=== PATIENT | female | born 1940 | race Caucasian/White ===

== ENCOUNTER 2017-05-29 20:52 | Observation (INO) ==
[2017-05-30] MEDS ORDERED: Naloxone 0.4 MG/ML INJ IVP PRN (00:13)
--- NOTE | 2017-05-30 00:19 | Internal Med History&Physical ---
Date of Encounter: 05/30/17 Time of Encounter: 00:19 Assessment and Plan (1) Altered mental status Current visit: Yes Status: Acute Patient with multiple neurologic symptoms Head CT from [facility] unremarkable Hx of visual hallucinations and fever Obtain Brain MRI Start Acyclovir empirically for suspected viral encephalitis Blood cultures Check CRP, ESR, repeat labs here Consult IR for lumbar puncture with viral cultures a.m Obtain ECHO to r/o valvular abnormalities due to one month history of recurrent dizziness Neurology eval Monitor closely High risk condition due to alteration in mental status as well as suspected intracranial infection Qualifiers: Altered mental status type: unspecified Qualified Code(s): R41.82 - Altered mental status, unspecified (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 Per CT scan from [facility] center No intervention necessary for now (3) Hydronephrosis Current visit: Yes Status: Chronic PEr CT scan Urology consult [id number] team to call Possibly chronic from horseshoe kidney Qualifiers: Hydronephrosis type: with ureteropelvic junction obstruction Qualified Code (s): Q62.11 - Congenital occlusion of ureteropelvic junction (4) Hypertension Current visit: Yes Status: Chronic Unspecified Possibly renovascular Continue home meds Qualifiers: Hypertension type: unspecified Qualified Code(s): I10 - Essential (primary ) hypertension (5) CKD (chronic kidney disease) Current visit: Yes Status: Chronic Suspected, per history from family baseline unknown COntinue to monitor Qualifiers: Chronic kidney disease stage: unspecified stage Qualified Code(s): N18.9 - Chronic kidney disease, unspecified (6) DVT prophylaxis Current visit: Yes Status: Acute EPCDs till after lumbar puncture (7) Abdominal pain Current visit: Yes Status: Acute Work up unremarkable Tylenol prn Avoid sedatives due to AMS, obtain lipase Abdomen exam is unremarkable Qualifiers: Abdominal location: epigastric Qualified Code(s): R10.13 - Epigastric pain Internal Medicine - H&P: HPI Chief complaint: Confusion Admitted From: Hospital to Hospital Transfer Plans for Post Hospital Care: Home History of present illness: Ms. aWlker is a 76 year old female with PMH of HTN She is transferred from [facility] for complains of altered mental status, visual hallucinations and weakness Patient is seen and evaluated at bedside with her family They report she has been having dizziness for the past one month Yesterday, she went to her PCP , who found her to have hypokalemia and low blood pressure and started her on amoxicillin for a presumed UTI. She woke up this morning with complains of headaches, and weakness. Patient also complains of generalized malaise and nause, she also complains of RLQ pain and epigastric discomfort. Per her family, she is intermittently confused since onset of symptoms and had fevers at home, up to 100.4 F. They deny any viral prodrome, sick contacts, focal weakness, speech deficits, sensory deficits. Patient continued to hold her neck and head and complained of generalized headaches with neck pain and jaw pain, she denies neck stiffness. family reports two episodes of visual hallucination at referral hospital They deny illicit drug use No shortness of breath, no chest pain, but patient endorsed "flopping" of her chest Work up at [facility] ER: VSS Chem: Na 136, K, 3.7, Cl 96. Glu 126. LFT WNL. CBC WNL. UA: Unremarkable CT head: Cerebral atrophy Abd CT: Horseshoe kidney. L hydronephrosis, AAA 2.9X3cm. 6mm RLL nodule. Past Med Surg Social Fam HX - Past Medical History Medical history: hypertension Psychiatric history: no psych history - Past Surgical History Surgical History: cholecystectomy, knee replacement - Social History Smoking Status: Never smoker Smokeless Tobacco Status: No Alcohol use: none Drug use: none - Family History Father Hx Family Cardiac Disorders: Yes Mother Hx Family Cancer: Yes (breast) Hx Family Neurologic Disorders: Yes Internal Medicine - H&P: Meds 3 Allergy/AdvReac Type Severity Reaction Status Date / Time No Known Allergies Allergy Verified 05/30/17 00:22 All Systems PM: A 10-system review of systems was performed and is negative for pertinent findings except as documented above in the HPI. - Constitutional Constitutional: chills, fever(s), lethargy - Cardiovascular Cardiovascular ROS IM: no chest pain, no diaphoresis, no dyspnea, no lightheadedness, no palpitations, no syncope - Respiratory Respiratory: no cough, no dyspnea, no wheezing, no excessive phlegm production - Gastrointestinal Gastrointestinal: abdominal pain - Neurological Neurological ROS: as per HPI, confusion, headache(s), other (hallucinations) - Hematologic/Lymphatic Hematologic/Lymphatic: no easy bruising - Constitutional Vitals: Temp Pulse Resp BP Pulse Ox 97.9 F 58 18 153/80 97 05/29/17 23:19 05/29/17 23:19 05/29/17 23:19 05/29/17 23:19 05/29/17 23:19 General appearance: Present: mild distress, A&O X 3, pleasant, answers questions appropriately - Head Head exam: Present: atraumatic, normocephalic - Eye Eye exam: Present: PERRL, conjuntiva pink, sclera anicteric Pupils: Present: PERRL - Neck Neck exam general surgery: Present: supple, trachea midline. Absent: lymphadenopathy - Respiratory Respiratory exam: Present: CTAB. Absent: accessory muscle use, rales, rhonchi, wheezes - Cardiovascular Cardiovascular exam: Present: RRR, +S1, +S2. Absent: diastolic murmur, gallop, rubs, systolic murmur - GI/Abdominal GI/Abdominal exam: Present: normal bowel sounds, soft, no peritoneal signs. Absent: distended, tenderness - Extremities Exam Extremities exam: Present: warm, radial pulses palpable and symmetrical. Absent : calf tenderness, cyanotic, pedal edema - Neurological Exam Neurological exam: Present: alert, CN II-XII intact, oriented X3, no focal deficits. Absent: pronater drift, facial droop, speech deficit Additional comments: NO neck stiffness, no meningeal signs - Skin Skin exam: Present: dry, intact
[2017-05-30 00:53] LABS: Basophils % 0.4 %; Eosinophils % 0.6 %; Hematocrit 37.7 % (35.3-44.9); Hemoglobin 12.6 g/dL (11.5-15.4); Immature Granulocytes % 0.4 % (0-4); Lymphocytes # 1.5 K/mcL (0.6-4.6); Lymphocytes % 28.4 %; Mean Corpuscular HGB Conc 33.4 g/dL (31.6-35.5); Mean Corpuscular Hemoglobin 29.6 pg (28.0-33.3); Mean Corpuscular Volume 88.7 fL (83.0-100.0); Mean Platelet Volume 12.6 fL (9.4-12.4); Monocytes # 0.5 K/mcL (0.0-1.3); Monocytes % 9.8 %; Neutrophils # 3.1 K/mcL (1.6-8.9); Platelet Count 151 K/mcL (140-400); Red Blood Count 4.25 M/mcL (3.82-4.97); Red Cell Distribution Width 13.2 % (11.5-14.5); Segmented Neutrophils % 60.4 %
[2017-05-30 01:00] LABS: Chol/HDL Ratio 2.3 (0-4.9)
[2017-05-30] MEDS ORDERED: Acetaminophen 325 MG TABLET PO ONE (01:00)
[2017-05-30 01:01] LABS: BUN/Creatinine Ratio 22 (6-26); Blood Urea Nitrogen 18 mg/dL (7-20); Calcium 9.9 mg/dL (8.6-10.8); Carbon Dioxide 26 mEq/L (19-29); Chloride 101 mEq/L (98-109); Glucose 118 mg/dL (70-99); Lipase 20 Units/L (8-78); Osmolality,Calculated 287 (280-300); Potassium 3.3 mEq/L (3.5-4.5); Sodium 137 mEq/L (136-145); eGFR For African Americans > 60 (> 60); eGFR For Non-African Americans > 60 (> 60)
[2017-05-30] MEDS ORDERED: Acetaminophen 325 MG TABLET PO PRN (01:01)
[2017-05-30 01:16] LABS: Platelet Clumps Few (Not Present); Platelet Estimate Normal (Normal)
[2017-05-30] MEDS ORDERED: *HR* Enoxaparin 40 MG/0.4 ML SYRINGE SQ SCH (06:00)
[2017-05-30] MEDS ORDERED: Acyclovir 500 MG in D5% in Water 250 ML IVPB SCH (08:00)
--- NOTE | 2017-05-30 13:00 | Neurology - Consult Note ---
Date of Encounter: 05/30/17 Time of Encounter: 12:58 Assessment and Plan (1) Altered mental status Current Visit: Yes Status: Acute Characterized by dizziness on standing, confusion, can not get the right words out, on top of chronic daily headaches and neck pain. There is no leucocytosis, no nuchal rigidity, no kernig sign and no eye pain. Headaches are chronic in nature and they are not associated with mental status change at present time. Hallucination likely related to mild encephalopathy may be related to medical conditions. The dizziness has features of orthostatic nature. MRI of brain is negative for any acute intracranial abnormality. I agree with the medical team that the clinical picture not consistent with PAPER COUNTER viral infection and that she does not need CSF study, and that acyclovir can be discontinued. Please continue medical and supportive care. Qualifiers: Altered mental status type: unspecified Qualified Code(s): R41.82 - Altered mental status, unspecified History of Present Illness Chief complaint: headaches and hallucination HPI: Ms. Walker is a 76 year old female with PMH significant for who presented with acute onset of confusion, hallucination and weakness. neurology was consulted regarding headaches, neck pain, in the setting of confusion, transient fever and concern for encephalitis. Patient is interviewed in the presence of her daughter who provided most of her current illness. Patient does have chronic headache and neck pain for quite a while, on daily basis. She has not seen a neurologist for the headache and neck pain but she does agree that she has the headaches on daily basis. This time what made her come to the ER of outside hospital was that she woke up and developed dizziness when standing up and she was thought to have hypotension and mild UTI. Daughter mentions that the dizziness tend to occur in the morning after she took her medications including the antihypertensives. She had a similar episode about two months ago. Beside the dizziness she has reported visual hallucinations. There was also report of mild fever, lasting less than 24 hour. Night float team was concerned that she may have encephalitis and started her on Acyclovir empirically. MRI of brain completed and showed no acute intracranial abnormality. Certainly there is no pattern suggesting encephalitis. Clinically, patient agrees that she is feeling better. She still has headaches though. Mental status appears at her baseline. Past Med Surg Social Fam HX - Past Medical History Medical history: hypertension Psychiatric history: no psych history - Past Surgical History Surgical History: cholecystectomy, knee replacement - Social History Smoking Status: Never smoker Smokeless Tobacco Status: No Alcohol use: none Drug use: none - Family History Father Hx Family Cardiac Disorders: Yes Mother Hx Family Cancer: Yes (breast) Hx Family Neurologic Disorders: Yes Medications and Allergies Amoxicillin [Amoxil] 500 mg PO TID 05/30/17 [History] Buspirone HCl [Buspar] 5 mg PO BID 05/30/17 [History] Lisinopril/Hydrochlorothiazide [Zestoretic 20-25 mg Tablet] 1 tab PO DAILY 05/30 [History] Rosuvastatin Calcium [Crestor] 5 mg PO DAILY 05/30/17 [History] 3 Allergy/AdvReac Type Severity Reaction Status Date / Time No Known Allergies Allergy Verified 05/30/17 00:22 All Systems: A 10-system review of systems was performed and is negative for pertinent findings except as documented above in the HPI. Physical Examination - Vital Signs Vital Signs: Initial Vital Signs Pulse Ox 97 05/29/17 23:05 - Constitutional General appearance: comfortable - Neurologic Sensorimotor examination: other (Grossly intact) Detailed motor examination: grossly full strength in all extremities Motor examination - right side: 5/5: deltoids, biceps, triceps, wrist flexion, wrist extension, bench worker helper, hip flexors, tibialis Anterior, quadriceps, toe extension (EHL), plantarflexion Motor examination - left side: 5/5: deltoids, biceps, triceps, wrist flexion, wrist extension, hip flexors, bench worker helper, quadriceps, tibialis Anterior, toe extension (EHL), plantarflexion Detailed sensory examination: other (Grossly intact) Posture: other (None) Reflex and gait examination: other (Gait not assessed) Reflexes: Biceps: 2+, Triceps: 2+, Brachioradialis: 2+, Patella: 2+ Mental Status Examination: awake, alert, oriented to person, oriented to place, oriented to time, follows commands appropriately, answers questions appropriately, no agnosia, no aphasia, no aproxia Cranial nerve examination: PERRL, EOMI, visual javed intact, corneal reflexes brisk symmetrically, sensory to face intact, mastication intact, no facial asymmetry is present, no dysarthria, hearing is intact symmetrically, soft palate elevates bilaterally upon phonation, gag reflex intact, flexes SCM and trapezius muscles symmetrically with full power, tongue protrudes midline, no atrophy or facial fasiculations present Results - Laboratory Findings CBC and BMP: 05/30/17 00:38 05/30/17 00:38 Abnormal lab findings: Abnormal lab results MPV 12.6 fL (9.4-12.4) H 05/30/17 00:38 Clumped Platelets Few (Not Present) A 05/30/17 00:38 Immature Plt Fraction 11.0 % (1.1-6.1) H 05/30/17 00:38 Potassium 3.3 mEq/L (3.5-4.5) L 05/30/17 00:38 Glucose 118 mg/dL (70-99) H 05/30/17 00:38 HDL Cholesterol 81 mg/dL (40-59) H 05/30/17 00:38 Consult Discharge Plan - Plan Referrals: Wiliam Britt DO [Primary Care Provider] -
--- NOTE | 2017-05-30 18:35 | Event Note ---
Date of Encounter: 05/30/17 Time of Encounter: 11:20 I evaluated patient at bedside. She was brought to the hospital yesterday for confusion, delusions, low-grade temperature that she had 2 days prior to presentation. She has been afebrile throughout the night. On exam she is awake alert oriented 3. Neuro exam is nonfocal. Heart is regular with no murmurs. I reviewed the MRI of the brain. No acute pathology. Plan: Follow-up with neurology. At this point I think viral encephalitis has been ruled out as the patient is back to baseline and there has been no fever. No history of viral prodrome or no prior personal history of herpes virus infections. Patient reports dizziness which could be related to orthostatic hypotension. I will discontinue lisinopril which could cause orthostatic hypotension and dizziness and continue with HCTZ. Please hold lisinopril on discharge and continue with HCTZ only. Follow-up with PCP The medical records have been reviewed by a member of the utilization review team, EHR and by the physician advisor and it was found to not meet inpatient criteria. The status will be changed to observation under condition code 44.
[2017-05-31 06:16] LABS: Basophils % 0.6 %; Eosinophils # 0.1 K/mcL (0.0-0.6); Eosinophils % 1.3 %; Hematocrit 36.8 % (35.3-44.9); Hemoglobin 12.2 g/dL (11.5-15.4); Immature Granulocytes % 0.6 % (0-4); Immature Platelets 11.3 % (1.1-6.1); Lymphocytes # 1.8 K/mcL (0.6-4.6); Lymphocytes % 37.5 %; Mean Corpuscular HGB Conc 33.2 g/dL (31.6-35.5); Mean Corpuscular Hemoglobin 29.9 pg (28.0-33.3); Mean Corpuscular Volume 90.2 fL (83.0-100.0); Mean Platelet Volume 12.3 fL (9.4-12.4); Monocytes # 0.5 K/mcL (0.0-1.3); Monocytes % 9.4 %; Neutrophils # 2.4 K/mcL (1.6-8.9); Platelet Count 149 K/mcL (140-400); Red Blood Count 4.08 M/mcL (3.82-4.97); Red Cell Distribution Width 13.5 % (11.5-14.5); Segmented Neutrophils % 50.6 %
[2017-05-31 06:19] LABS: BUN/Creatinine Ratio 25 (6-26); Blood Urea Nitrogen 26 mg/dL (7-20); Calcium 9.4 mg/dL (8.6-10.8); Carbon Dioxide 27 mEq/L (19-29); Chloride 104 mEq/L (98-109); Glucose 105 mg/dL (70-99); Osmolality,Calculated 297 (280-300); Potassium 3.8 mEq/L (3.5-4.5); Sodium 141 mEq/L (136-145); eGFR For African Americans > 60 (> 60); eGFR For Non-African Americans 51 (> 60)
[2017-05-31] MEDS ORDERED: hydroCHLOROthiazide 25 MG TABLET PO SCH (09:00)
[2017-05-31 11:11] VITALS: BP 109/67
--- NOTE | 2017-05-31 13:44 | Discharge Summary ---
Date of Encounter: 05/31/17 Time of Encounter: 12:25 - Discharge Diagnosis (1) Altered mental status Priority: Primary Status: Resolved Qualifiers: Altered mental status type: unspecified Qualified Code(s): R41.82 - Altered mental status, unspecified (2) Horseshoe kidney Priority: Secondary Status: Chronic (3) Hydronephrosis Priority: Secondary Status: Chronic Qualifiers: Hydronephrosis type: with ureteropelvic junction obstruction Qualified Code (s): Q62.11 - Congenital occlusion of ureteropelvic junction (4) Hypertension Priority: Secondary Status: Chronic Qualifiers: Hypertension type: unspecified Qualified Code(s): I10 - Essential (primary ) hypertension (5) CKD (chronic kidney disease) Priority: Secondary Status: Chronic Qualifiers: Chronic kidney disease stage: unspecified stage Qualified Code(s): N18.9 - Chronic kidney disease, unspecified (6) DVT prophylaxis Priority: Secondary Status: Acute - Discharge Medications Prescriptions: hydroCHLOROthiazide [Hydrochlorothiazide] 25 mg PO DAILY #30 tablet Home Medications: Amoxicillin [Amoxil] 500 mg PO TID 05/30/17 [History] Buspirone HCl [Buspar] 5 mg PO BID 05/30/17 [History] Rosuvastatin Calcium [Crestor] 5 mg PO DAILY 05/30/17 [History] hydroCHLOROthiazide [Hydrochlorothiazide] 25 mg PO DAILY #30 tablet 05/31/17 [Rx ] Allergies/Adverse Reactions: 3 Allergy/AdvReac Type Severity Reaction Status Date / Time No Known Allergies Allergy Verified 05/30/17 00:22 Procedures/tests Complete & Pending: Procedures Performed prior 72 hours Category Date Time Status MR head/brain wo con [MR] Stat MRI 05/30/17 00:15 Completed EV echocardiogram Routine Y 05/30/17 00:46 Completed Date of admission: 05/29/17 22:37 Primary care physician: Wiliam Britt Consults: 05/30/17 01:01 Consult to Neurology [CONS] Routine Consulting Provider: [facility] Reason for Consult: Confusion, visual hallucinations Call Completed: No Discharging clinician: Maxine Gil Anticipated date of discharge: 05/31/17 - Patient Status Disposition: Home, Self-Care Condition: Good Functional capacity at discharge: independent ambulation Overall status at discharge: patient is back to baseline - Discharge Instructions Follow Up With: Wiliam Britt DO [Primary Care Provider] - Additional Instructions: Please follow up with your primary care physician within five days after your discharge from the hospital Your home medications have been changed as follows: 1. your home medication of Lisinopril/Hydrochlorothiazide combination pill has been discontinued 2. HCTZ 25mg once a day has been added to your home medications Please keep a daily log of your blood pressure readings and take this log with you to your PCP's appointment. Resume all other medications as prescribed by your primary care physician. - Diet and Activity Activity: resume usual activities as tolerated Diet: low salt diet Hospital course: Ms. Walker is a 76 year old female with PMH of HTN who was transferred from [facility] for management of AMS. Initially there was a concern for viral encephalitis for which she was empirically started on antivirals. She was seen by neurology and concern for orthostatic hypotension contributing to her symptoms. her home dose of lisinopril/hctz was placed on hold and hctz alone was continued. Her mental status returned to baseline with complete resolution of her presenting symptoms. 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 AT this time she is resting comfortably in bed and reports of living alone, ambulating well and denies any discomfort. She will be discharged to home with readjustment of her hypertensive medications. she states she has a lot of family around and is refusing home health services at this time. Patient is hemodynamically stable and will be discharged to home with follow up with PCP. - Time Spent with Patient Total time spent providing and/or coordinating discharge services: Less than 30 minutes - Constitutional Vitals: Temp Pulse Resp BP Pulse Ox 99.2 F 92 17 109/67 94 05/31/17 11:10 05/31/17 11:10 05/31/17 11:10 05/31/17 11:10 05/31/17 11:10 General appearance: Present: A&O X 3, pleasant, no acute distress, obese, answers questions appropriately - Head Head exam: Present: atraumatic, normocephalic - Eye Eye exam: Present: conjuntiva pink, sclera anicteric - Respiratory Respiratory exam: Present: CTAB. Absent: accessory muscle use, rales, rhonchi, wheezes - Cardiovascular Cardiovascular exam: Present: RRR, +S1, +S2. Absent: diastolic murmur, gallop, rubs, systolic murmur - GI/Abdominal GI/Abdominal exam: Present: normal bowel sounds, soft, no peritoneal signs. Absent: distended, tenderness - Extremities Exam Extremities exam: Present: warm, radial pulses palpable and symmetrical. Absent : calf tenderness, cyanotic, pedal edema - Neurological Exam Neurological exam: Present: alert, oriented X3 - Psychiatric Psychiatric exam: Present: normal affect, normal mood
== END 2017-05-31 15:29 | disposition home or self-care (01) ==
LOC: 3BNU → SUATTDRO 22:37
PROVIDERS: ADMIT Internal Medicine; ATTEND Internal Medicine

== ENCOUNTER 2017-06-05 22:32 | Observation (INO) ==
[2017-06-05] MEDS ORDERED: Aspirin 81 MG TAB.CHEW PO ONE (23:08)
[2017-06-05 23:28] LABS: Bilirubin,Urine Negative (Negative); Blood,Urine Negative (Negative); Clarity,Urine Clear (Clear); Color,Urine Yellow (Yellow); Glucose,Urine (UA) Normal (Normal); Ketones,Urine Negative (Negative); Leukocyte Esterase,Urine Negative (Negative); Nitrite,Urine Negative (Negative); PH,Urine 8.5 pH Units (5.0-8.0); Protein,Urine Trace mg/dL (Neg-Trace); Specific Gravity,Urine 1.021 (1.010-1.025); Urobilinogen,Urine Normal (Normal)
[2017-06-05 23:31] LABS: Hyaline Casts,Urine None Seen per lpf (None-Few); RBC,Urine 0-3 per hpf (0-3); Squamous Epithelial Cell,Urine Many per lpf (None-Few); WBC,Urine 0-3 per hpf (0-3)
[2017-06-05 23:41] LABS: Bacteria,Urine Few per hpf (None-Few)
[2017-06-06 00:17] LABS: Basophils % 0.2 %; Hemoglobin 12.9 g/dL (11.5-15.4); Immature Granulocytes % 0.2 % (0-4); Mean Corpuscular Hemoglobin 29.9 pg (28.0-33.3); Mean Platelet Volume 12.4 fL (9.4-12.4); Red Blood Count 4.31 M/mcL (3.82-4.97); Red Cell Distribution Width 12.9 % (11.5-14.5)
[2017-06-06 00:19] LABS: Hematocrit 38.1 % (35.3-44.9); Immature Platelets 12.1 % (1.1-6.1); Lymphocytes # 1.5 K/mcL (0.6-4.6); Lymphocytes % 30.1 %; Mean Corpuscular HGB Conc 33.9 g/dL (31.6-35.5); Mean Corpuscular Volume 88.4 fL (83.0-100.0); Monocytes # 0.5 K/mcL (0.0-1.3); Platelet Count 147 K/mcL (140-400); Segmented Neutrophils % 60.5 %
[2017-06-06 00:33] LABS: BUN/Creatinine Ratio 29 (6-26); Blood Urea Nitrogen 30 mg/dL (7-20); Calcium 10.1 mg/dL (8.6-10.8); Carbon Dioxide 29 mEq/L (19-29); Chloride 100 mEq/L (98-109); Glucose 129 mg/dL (70-99); Osmolality,Calculated 304 (280-300); Potassium 3.2 mEq/L (3.5-4.5); Sodium 143 mEq/L (136-145); eGFR For African Americans > 60 (> 60); eGFR For Non-African Americans 51 (> 60)
[2017-06-06 00:34] LABS: Albumin/Globulin Ratio 1.3 (1.1-2.2); Bilirubin,Direct 0.3 mg/dL (0.0-0.5); Bilirubin,Indirect 0.5 mg/dL (0.0-1.2); Bilirubin,Total 0.8 mg/dL (0.2-1.2); Globulin 3.2 g/dL (2.4-3.5); Total Protein 7.2 g/dL (6.0-8.3)
--- NOTE | 2017-06-06 00:36 | Emergency Department Note ---
Disposition Clinical Impression: Chest pain Qualifiers: Chest pain type: unspecified Qualified Code(s): R07.9 - Chest pain, unspecified Disposition: Admitted As Inpatient Condition: Good Referrals: Wiliam Britt DO [Primary Care Provider] - Time of Disposition: 06:10 General Adult HPI - General Chief complaint: ED Chest Pain Stated complaint: chest pain, nausea, AMS Time Seen by Provider: 06/05/17 23:05 Source: family Nursing Notes Reviewed: Yes Vital Signs Reviewed: Yes - History of Present Illness HPI Narrative: 76yo female presents with concern for chest pain. She is coming in by her daughter who assists with history. The daughter mentions patient was recently seen at [facility] in [place], for concerns of altered mental status, confusion. She was transferred to [facility] and admitted and was discharged last week. Daughter mentions that the chest pain had worsened which prompted her visit to the emergency department. Patient has complained of intermittent abdominal pain , vomiting, cough. Patient denies any headache, fever, weakness, shortness of breath. Pain Scale: 0 - Related Data Home Medications Medication Instructions Recorded Confirmed Buspirone HCl [Buspar] 5 mg PO BID 05/30/17 06/06/17 Rosuvastatin Calcium [Crestor] 5 mg PO DAILY 05/30/17 06/06/17 Previous Rx's Medication Instructions Recorded hydroCHLOROthiazide 25 mg PO DAILY #30 tablet 05/31/17 [Hydrochlorothiazide] Allergies Allergy/AdvReac Type Severity Reaction Status Date / Time No Known Allergies Allergy Verified 05/30/17 00:22 All systems ED: reviewed and negative except as stated. Constitutional: Denies: fever, chills Eyes: Denies: vision change ENT ED: Denies: throat pain Cardiovascular: Reports: as per HPI Respiratory: Reports: as per HPI Gastrointestinal: Reports: as per HPI Genitourinary: Denies: dysuria Musculoskeletal: Denies: back pain Integumentary: Denies: rash Neurological: Denies: headache Psychiatric: Denies: anxiety Endocrine: Denies: fatigue Hematological/Lymphatic: Denies: easy bleeding Allergic/Immunologic: Denies: facial swelling Past Medical History - Past Medical History Medical history: Reports: hypertension Surgical history: Reports: cholecystectomy, knee replacement Psychiatric history: Reports: no psych history - Social History Smoking Status: Never smoker Smokeless Tobacco Status: No Alcohol use: Reports: none Drug use: Reports: none Physical Exam - General Limitations: altered mental status General appearance: in no apparent distress - Head Head exam: atraumatic, normocephalic - Eye Eye exam: Present: EOMI. Absent: conjunctival injection - ENT ENT exam: mucous membranes moist - Neck Neck exam: Present: normal inspection, full ROM - Chest Chest inspection: Present: normal inspection. Absent: symmetric chest wall rise - Respiratory Respiratory exam: Present: normal lung sounds bilaterally. Absent: respiratory distress - Cardiovascular Cardiovascular exam: Present: regular rate, normal rhythm - Abdominal Exam Abdominal exam: Present: soft, Non-Tender - Extremities Exam Extremities exam: Present: normal inspection, full ROM, normal capillary refill - Back Exam Back exam: Present: full ROM - Neurological Exam Neurological exam: Present: alert, oriented X3 - Psychiatric Psychiatric exam: Present: normal affect, normal mood - Skin Skin exam: Present: warm, dry, intact, normal color, rash. Absent: cyanosis, diaphoresis Course Course Narrative: 76-year-old female presents with chest pain. She also has a history of mental status, nausea. Recently discharged from the [facility]. Daughter reports that worsening chest pain management tonight. Review of medical records show no cardiac workup other than a normal echocardiogram. Patient's chest pain is intermittent, and scapular pain with nausea. On examination patient appears in no acute distress. She does respond slowly, appears confused, but she is alert and oriented to person place and time. Work up Initiated. - Reevaluation(s) Reevaluation #1: Patient's EKG shows T-wave abnormalities, ST deviation. Sinus rhythm. No previous EKG for comparison. Troponin within normal limits. Chest x-ray unremarkable. Discussed with Dr. Maguire, who agreed for admission for chest pain workup. Time: 00:42 Reevaluation #2: Per Dr. Maguire, patient now complaining of right-sided jaw pain. We will repeat EKG. Patient also discussed with hospitalist Dr. Ulrich, who accepted patient and had recommended nitroglycerin and morphine for patient's pain. Time: 01:47 Vital Signs Temperature 98.3 F 06/05/17 22:33 Pulse Rate 71 06/05/17 22:33 Respiratory Rate 16 06/05/17 22:33 Blood Pressure 169/86 06/05/17 22:33 O2 Sat by Pulse Oximetry 99 06/05/17 22:33 Temperature 97.9 F 06/06/17 03:49 Pulse Rate 62 06/06/17 03:49 Respiratory Rate 17 06/06/17 03:49 Blood Pressure 137/75 06/06/17 03:49 O2 Sat by Pulse Oximetry 95 06/06/17 03:49 Oxygen Delivery Oxygen Delivery Room Air Medical Decision Making - Lab Data Lab results reviewed: Yes I reviewed the patient's lab results. Result diagrams: 06/06/17 00:11 06/06/17 04:08 Lab Results 06/05/17 06/06/17 06/06/17 Range/Units 23:20 00:11 00:11 WBC 5.0 (4.3-11.1) K/mcL RBC 4.31 (3.82-4.97) M/mcL Hgb 12.9 (11.5-15.4) g/dL Hct 38.1 (35.3-44.9) % MCV 88.4 (83.0-100.0) fL MCH 29.9 (28.0-33.3) pg MCHC 33.9 (31.6-35.5) g/dL RDW 12.9 (11.5-14.5) % Plt Count 147 (140-400) K/mcL MPV 12.4 (9.4-12.4) fL Immature Gran % 0.2 (0-4) % Seg Neutrophils % 60.5 % Lymphocytes % 30.1 % Monocytes % 9.0 % Eosinophils % 0.0 % Basophils % 0.2 % Neutrophils # 3.0 (1.6-8.9) K/mcL Lymphocytes # 1.5 (0.6-4.6) K/mcL Monocytes # 0.5 (0.0-1.3) K/mcL Eosinophils # 0.0 (0.0-0.6) K/mcL Basophils # 0.0 (0.0-0.2) K/mcL Immature Plt Fraction 12.1 H (1.1-6.1) % Sodium (136-145) mEq/L Potassium (3.5-4.5) mEq/L Chloride (98-109) mEq/L Carbon Dioxide (19-29) mEq/L BUN (7-20) mg/dL Creatinine (0.57-1.11) mg/dL Est GFR ( Amer) (> 60) Est GFR (Non-Af Amer) (> 60) BUN/Creatinine Ratio (6-26) Glucose (70-99) mg/dL Calculated Osmolality (280-300) Calcium (8.6-10.8) mg/dL Total Bilirubin 0.8 (0.2-1.2) mg/dL Direct Bilirubin 0.3 (0.0-0.5) mg/dL Indirect Bilirubin 0.5 (0.0-1.2) mg/dL AST 18 (5-34) Units/L ALT 14 (0-55) Units/L Alkaline Phosphatase 65 (38-126) Units/L Troponin I (0-0.03) ng/mL Serum Total Protein 7.2 (6.0-8.3) g/dL Albumin 4.0 (3.5-5.0) g/dL Globulin 3.2 (2.4-3.5) g/dL Albumin/Globulin Ratio 1.3 (1.1-2.2) Urine Color Yellow (Yellow) Urine Clarity Clear (Clear) Urine pH 8.5 H (5.0-8.0) pH Units Ur Specific Calhoun 1.021 (1.010-1.025) Urine Protein Trace (Neg-Trace) mg/dL Urine Glucose (UA) Normal (Normal) mg/dL Urine Ketones Negative (Negative) mg/dL Urine Blood Negative (Negative) Urine Nitrite Negative (Negative) Urine Bilirubin Negative (Negative) Urine Urobilinogen Normal (Normal) mg/dL Ur Leukocyte Esterase Negative (Negative) Urine Microscopic RBC 0-3 (0-3) per hpf Urine Microscopic WBC 0-3 (0-3) per hpf Ur Squamous Epith Cells Many H (None-Few) per lpf Urine Bacteria Few (None-Few) per hpf Hyaline Casts None Seen (None-Few) per lpf Ur Culture Indicated? NO (NO) Specimen Rejected 06/06/17 06/06/17 06/06/17 Range/Units 00:11 00:11 04:08 WBC (4.3-11.1) K/mcL RBC (3.82-4.97) M/mcL Hgb (11.5-15.4) g/dL Hct (35.3-44.9) % MCV (83.0-100.0) fL MCH (28.0-33.3) pg MCHC (31.6-35.5) g/dL RDW (11.5-14.5) % Plt Count (140-400) K/mcL MPV (9.4-12.4) fL Immature Gran % (0-4) % Seg Neutrophils % % Lymphocytes % % Monocytes % % Eosinophils % % Basophils % % Neutrophils # (1.6-8.9) K/mcL Lymphocytes # (0.6-4.6) K/mcL Monocytes # (0.0-1.3) K/mcL Eosinophils # (0.0-0.6) K/mcL Basophils # (0.0-0.2) K/mcL Immature Plt Fraction (1.1-6.1) % Sodium 143 (136-145) mEq/L Potassium 3.2 L (3.5-4.5) mEq/L Chloride 100 (98-109) mEq/L Carbon Dioxide 29 (19-29) mEq/L BUN 30 H (7-20) mg/dL Creatinine 1.05 (0.57-1.11) mg/dL Est GFR ( Amer) > 60 (> 60) Est GFR (Non-Af Amer) 51 L (> 60) BUN/Creatinine Ratio 29 H (6-26) Glucose 129 H (70-99) mg/dL Calculated Osmolality 304 H (280-300) Calcium 10.1 (8.6-10.8) mg/dL Total Bilirubin (0.2-1.2) mg/dL Direct Bilirubin (0.0-0.5) mg/dL Indirect Bilirubin (0.0-1.2) mg/dL AST (5-34) Units/L ALT (0-55) Units/L Alkaline Phosphatase (38-126) Units/L Troponin I 0.02 0.02 (0-0.03) ng/mL Serum Total Protein (6.0-8.3) g/dL Albumin (3.5-5.0) g/dL Globulin (2.4-3.5) g/dL Albumin/Globulin Ratio (1.1-2.2) Urine Color (Yellow) Urine Clarity (Clear) Urine pH (5.0-8.0) pH Units Ur Specific Calhoun (1.010-1.025) Urine Protein (Neg-Trace) mg/dL Urine Glucose (UA) (Normal) mg/dL Urine Ketones (Negative) mg/dL Urine Blood (Negative) Urine Nitrite (Negative) Urine Bilirubin (Negative) Urine Urobilinogen (Normal) mg/dL Ur Leukocyte Esterase (Negative) Urine Microscopic RBC (0-3) per hpf Urine Microscopic WBC (0-3) per hpf Ur Squamous Epith Cells (None-Few) per lpf Urine Bacteria (None-Few) per hpf Hyaline Casts (None-Few) per lpf Ur Culture Indicated? (NO) Specimen Rejected 06/06/17 06/06/17 Range/Units 04:08 04:08 WBC (4.3-11.1) K/mcL RBC (3.82-4.97) M/mcL Hgb (11.5-15.4) g/dL Hct (35.3-44.9) % MCV (83.0-100.0) fL MCH (28.0-33.3) pg MCHC (31.6-35.5) g/dL RDW (11.5-14.5) % Plt Count (140-400) K/mcL MPV (9.4-12.4) fL Immature Gran % (0-4) % Seg Neutrophils % % Lymphocytes % % Monocytes % % Eosinophils % % Basophils % % Neutrophils # (1.6-8.9) K/mcL Lymphocytes # (0.6-4.6) K/mcL Monocytes # (0.0-1.3) K/mcL Eosinophils # (0.0-0.6) K/mcL Basophils # (0.0-0.2) K/mcL Immature Plt Fraction (1.1-6.1) % Sodium 140 (136-145) mEq/L Potassium 3.0 L (3.5-4.5) mEq/L Chloride 100 (98-109) mEq/L Carbon Dioxide 29 (19-29) mEq/L BUN 29 H (7-20) mg/dL Creatinine 1.01 (0.57-1.11) mg/dL Est GFR ( Amer) > 60 (> 60) Est GFR (Non-Af Amer) 53 L (> 60) BUN/Creatinine Ratio 29 H (6-26) Glucose 117 H (70-99) mg/dL Calculated Osmolality 297 (280-300) Calcium 9.7 (8.6-10.8) mg/dL Total Bilirubin (0.2-1.2) mg/dL Direct Bilirubin (0.0-0.5) mg/dL Indirect Bilirubin (0.0-1.2) mg/dL AST (5-34) Units/L ALT (0-55) Units/L Alkaline Phosphatase (38-126) Units/L Troponin I (0-0.03) ng/mL Serum Total Protein (6.0-8.3) g/dL Albumin (3.5-5.0) g/dL Globulin (2.4-3.5) g/dL Albumin/Globulin Ratio (1.1-2.2) Urine Color (Yellow) Urine Clarity (Clear) Urine pH (5.0-8.0) pH Units Ur Specific Calhoun (1.010-1.025) Urine Protein (Neg-Trace) mg/dL Urine Glucose (UA) (Normal) mg/dL Urine Ketones (Negative) mg/dL Urine Blood (Negative) Urine Nitrite (Negative) Urine Bilirubin (Negative) Urine Urobilinogen (Normal) mg/dL Ur Leukocyte Esterase (Negative) Urine Microscopic RBC (0-3) per hpf Urine Microscopic WBC (0-3) per hpf Ur Squamous Epith Cells (None-Few) per lpf Urine Bacteria (None-Few) per hpf Hyaline Casts (None-Few) per lpf Ur Culture Indicated? (NO) Specimen Rejected Clotted - Radiology Data Radiology results reviewed: Yes I reviewed the patient's radiology results. - EKG Data EKG #1 EKG attestation: Yes I reviewed and interpreted this EKG. EKG shows normal: sinus rhythm Rate: normal Rhythm: NSR T wave inversions noted in: II, aVF When compared to previous EKG there are: previous EKG unavailable Attestation Statement - Attestation Attestation: I, Tono Maguire MD, personally evaluated this patient and discussed their management with the midlevel provicer, PAC/GREENHOUSE TECHNICIAN. I reviewed the midlevel provider 's note and agree with the documented findings, medical decision making, and plan of care. 76-year-old female who lives alone presents to the emergency department with her daughter complaining of some chest pain today. Daughter states she complains of chest pain off and on and states it feels like something is stuck in her chest. She coughs and sometimes produces some clear to white sputum. Daughter also reports that she has been confused and saying things that do not make sense. She is oriented and recognizes people but just intermittently says things like while here in the emergency department she asked her daughter to go over there and get her a menu. She also asked her daughter to push a button to call someone on the second floor. Patient does admit to chest pain in the mid chest. She denies radiation. She admits to some mild shortness of breath. While here in the emergency department she also had an episode of right jaw pain. On examination patient is a well-developed well-nourished elderly female in no acute distress. She is alert and answers questions appropriately but does seem elderly confused intermittently. There is no cyanosis or diaphoresis. She is very anxious. Chest is nontender to palpation. Breath sounds are clear and equal bilaterally. Heart regular. Abdomen soft and nontender. No pedal edema. Labs reviewed. Chest x-ray negative. EKG does show some diffuse T-wave flattening with no prior EKG for comparison. The hospitalist, Dr. Marino, was consulted and accepted the admission of the patient.
[2017-06-06] MEDS ORDERED: Nitroglycerin 0.4 MG TAB.SUBL SL ONE (01:45)
[2017-06-06] MEDS ORDERED: *HR* Morphine 2 MG/ML SYRINGE IVP ONE (01:46)
--- NOTE | 2017-06-06 03:31 | Internal Med History&Physical ---
<HumbertoRichard - Last Filed: 06/06/17 04:01> Date of Encounter: 06/06/17 Time of Encounter: 02:45 Assessment and Plan (1) Chest pain Current visit: Yes Status: Acute Atypical chest pain symptoms. Troponin was negative. Last echo on 05/30/17 shows an EF of 60-65% with mild diastolic dysfunction. CXR showed no acute cardiopulmonary disease. UMANG score 2. Currently not symptomatic. - Trend troponins x3 every 6HR. - Pharmacologic stress test. - Repeat EKG in morning. - Continue home med of ASA 81 and simvastatin. Qualifiers: Chest pain type: unspecified Qualified Code(s): R07.9 - Chest pain, unspecified (2) Altered mental status Current visit: No Status: Resolved According to patient's family, she is currently at her baseline in terms of her mental status. She is not hypotensive. Afebrile. No complaints of dysuria. Denies constipation. UA was negative for infection. Qualifiers: Altered mental status type: unspecified Qualified Code(s): R41.82 - Altered mental status, unspecified (3) Hypokalemia Current visit: Yes Status: Acute Potassium level at 3.2. 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 - Given potassium chloride in ED. - Recheck in morning. (4) CKD (chronic kidney disease) Current visit: No Status: Chronic Qualifiers: Chronic kidney disease stage: unspecified stage Qualified Code(s): N18.9 - Chronic kidney disease, unspecified (5) Hypertension Current visit: No Status: Chronic Started on home med. - HCTZ. Qualifiers: Hypertension type: unspecified Qualified Code(s): I10 - Essential (primary ) hypertension (6) Anxiety Current visit: Yes Status: Acute - Continue home med of buspar. (7) DVT prophylaxis Current visit: No Status: Acute - Heparin SQ. Internal Medicine - H&P: HPI Chief complaint: Chest pain, AMS Admitted From: Emergency Dept History of present illness: Ms. 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 Patient was alert and oriented x3 when seen, but she was unable to answer my questions appropriately. He son and daughter were at bedside and were able to help me with her history. Patient had started c/o chest pain around 5 pm yesterday, stating that it was achy in nature, was across her chest, did note radiate to arm, occurred at rest, and lasted for 2-3 hours. She takes ASA everday but did not take anything to relieve the pain. She was also c/o SOB at the time as well. No fever or chills. She was nauseous today, but no vomiting. She did have a bowel movement earlier yesterday. Denies any dysuria. Patient was seen last week here for AMS where she was hypotensive and had a fever at home per her family. Her PCP put her on amoxicillin on suspicion of UTI. During her stay here then, there was suspicion of viral encephalitis, but that was ruled out. Her hypotension was ruled likely due to her BP medications. Lisinopril was discontinued and she was discharged with HCTZ. As of right now she denies any chest pain, SOB, nausea, or vomiting. Past Med Surg Social Fam HX - Past Medical History Medical history: hypertension Psychiatric history: no psych history - Past Surgical History Surgical History: cholecystectomy, knee replacement - Social History Smoking Status: Never smoker Smokeless Tobacco Status: No Alcohol use: none Drug use: none - Family History Father Hx Family Cardiac Disorders: Yes Mother Hx Family Cancer: Yes (breast) Hx Family Neurologic Disorders: Yes Internal Medicine - H&P: Meds Buspirone HCl [Buspar] 5 mg PO BID 05/30/17 [History] Rosuvastatin Calcium [Crestor] 5 mg PO DAILY 05/30/17 [History] hydroCHLOROthiazide [Hydrochlorothiazide] 25 mg PO DAILY #30 tablet 05/31/17 [Rx ] 3 Allergy/AdvReac Type Severity Reaction Status Date / Time No Known Allergies Allergy Verified 05/30/17 00:22 ROS unobtainable: other (History obtained from patient and family. ) All Systems PM: A 10-system review of systems was performed and is negative for pertinent findings except as documented above in the HPI. - Constitutional Constitutional: as per HPI - Cardiovascular Cardiovascular ROS IM: chest pain, dyspnea - Respiratory Respiratory: dyspnea, chest congestion, no wheezing - Gastrointestinal Gastrointestinal: abdominal pain (Epigastric pain), nausea, no constipation, no diarrhea, no vomiting - Genitourinary Genitourinary: no dysuria - Musculoskeletal Musculoskeletal ROS IM: no numbness, no tingling - Neurological Neurological ROS: confusion (Per family. ), no dizziness, no numbness, no tingling - Psychiatric Psychiatric: anxiety - Constitutional Vitals: Temp Pulse Resp BP Pulse Ox 98.3 F 72 18 141/78 100 06/05/17 22:33 06/06/17 01:26 06/06/17 02:35 06/06/17 02:35 06/06/17 01:26 General appearance: Present: A&O X 3, no acute distress. Absent: answers questions appropriately - Respiratory Respiratory exam: Present: CTAB. Absent: rhonchi, wheezes - Cardiovascular Cardiovascular exam: Present: RRR, +S1, +S2 - GI/Abdominal GI/Abdominal exam: Present: normal bowel sounds, soft, tenderness (Mild tenderness in mid epigastric region. ). Absent: guarding, rebound - Extremities Exam Extremities exam: Present: full ROM, radial pulses palpable and symmetrical. Absent: tenderness - Neurological Exam Neurological exam: Present: CN II-XII intact, oriented X3, reflexes normal, no focal deficits, strengths equal and symetr throughout - Psychiatric Psychiatric exam: Absent: anxious Internal Med - H&P Results - Labs CBC & Chem 7: 06/06/17 00:11 06/06/17 00:11 - EKG Data -: EKG Interpreted by Myself EKG shows normal: sinus rhythm Rate: normal - EKG Data Prior EKG available for review: no Interpretation IM: ischemic changes (ST-depression and T-wave inversions suggestive of ischemic changes) <Ronaldo Marino - Last Filed: 06/06/17 05:05> Date of Encounter: 06/06/17 Internal Medicine - H&P: HPI History of present illness: Ms. Walker is a 76 year old female All Systems PM: A 10-system review of systems was performed and is negative for pertinent findings except as documented above in the HPI. - Constitutional Vitals: Temp Pulse Resp BP Pulse Ox 97.9 F 62 17 137/75 95 06/06/17 03:49 06/06/17 03:49 06/06/17 03:49 06/06/17 03:49 06/06/17 03:49 Internal Med - H&P Results - Labs CBC & Chem 7: 06/06/17 00:11 06/06/17 04:08 Labs: [facility] 06/06/17 04:08 Sodium 140 Potassium 3.0 L Chloride 100 Carbon Dioxide 29 BUN 29 H Creatinine 1.01 Glucose 117 H Calcium 9.7 Cardiac Enzymes 06/06/17 Range/Units 04:08 Troponin I 0.02 (0-0.03) ng/mL - Attending Attestation I conducted a face to face diagnostic evaluation of this patient and my medical decision-making was reviewed with the Resident Physician, Dr. Richard Paul. I agree with the documented findings, disposition and treatment plan as described except to the extent set forth below: Patient was brought to the hospital due to complaints of chest pain. Currently she denies chest pain. History is limited by patient's dementia. On exam she is in no acute distress. Heart is regular. Lungs are clear. Troponin is negative. EKG reviewed by myself shows normal normal rate. Normal rhythm. T-wave inversions in leads 2 and aVF. Plan: Trend troponin. Obtain stress test.
[2017-06-06 04:53] LABS: BUN/Creatinine Ratio 29 (6-26); Blood Urea Nitrogen 29 mg/dL (7-20); Calcium 9.7 mg/dL (8.6-10.8); Carbon Dioxide 29 mEq/L (19-29); Chloride 100 mEq/L (98-109); Glucose 117 mg/dL (70-99); Osmolality,Calculated 297 (280-300); Sodium 140 mEq/L (136-145); eGFR For African Americans > 60 (> 60); eGFR For Non-African Americans 53 (> 60)
[2017-06-06] MEDS ORDERED: Regadenoson 0.4 MG/5 ML SYRINGE IVP ONE (06:11)
[2017-06-06 06:35] LABS: Eosinophils % 0.4 %; Immature Granulocytes % 0.2 % (0-4)
[2017-06-06 06:36] LABS: Basophils % 0.4 %; Hematocrit 35.8 % (35.3-44.9); Immature Platelets 12.9 % (1.1-6.1); Lymphocytes # 1.5 K/mcL (0.6-4.6); Lymphocytes % 31.7 %; Mean Corpuscular HGB Conc 33.5 g/dL (31.6-35.5); Mean Corpuscular Hemoglobin 29.7 pg (28.0-33.3); Mean Corpuscular Volume 88.6 fL (83.0-100.0); Mean Platelet Volume 12.3 fL (9.4-12.4); Monocytes # 0.5 K/mcL (0.0-1.3); Monocytes % 10.6 %; Neutrophils # 2.7 K/mcL (1.6-8.9); Platelet Count 132 K/mcL (140-400); Red Blood Count 4.04 M/mcL (3.82-4.97); Segmented Neutrophils % 56.7 %
[2017-06-06 06:55] LABS: Platelet Clumps Few (Not Present); Platelet Estimate Slight Decrease (Normal)
[2017-06-06] MEDS: hydroCHLOROthiazide 25 MG TABLET PO SCH (09:53)
[2017-06-06] MEDS: *HR* Heparin 5,000 UNIT/ML VIAL SQ SCH ×2 (09:53→18:01)
--- NOTE | 2017-06-06 14:57 | Discharge Summary ---
Date of Encounter: 06/06/17 Time of Encounter: 14:55 - Discharge Diagnosis (1) Chest pain Priority: Primary Status: Acute Comments: That started day of presentation. Patient suspects secondary to anxiety. 05/30 TTE with EF 60% and mild diastolic dysfunction. CXR negative. Serial troponins negative, EKG without acute ST changes. Stress test negative for infarct or ischemia. Recommend outpatient follow-up with cardiology. Continue home ASA, and statin. Qualifiers: Chest pain type: unspecified Qualified Code(s): R07.9 - Chest pain, unspecified (2) Atrial fibrillation Priority: Primary Status: Acute Comments: brief episodes of atrial fibrillation noted during stress. No A. fib noted on telemetry or EKG. No previous history of A. fib. Continue home ASA. Follow- up with cardiology outpatient. Qualifiers: Atrial fibrillation type: paroxysmal Qualified Code(s): I48.0 - Paroxysmal atrial fibrillation (3) Hypokalemia Priority: Primary Status: Acute Comments: Potassium 3.0. Replaced. Monitor repeat potassium. Mg pending (4) Anxiety Priority: Primary Status: Acute Comments: per hx. patient reports being on BuSpar in the past but self discontinued as she did not tolerate it well. Strongly encourage outpatient follow-up with PCP (5) CKD (chronic kidney disease) Priority: Primary Status: Chronic Comments: per hx. Cr at baseline. Qualifiers: Chronic kidney disease stage: unspecified stage Qualified Code(s): N18.9 - Chronic kidney disease, unspecified - Discharge Medications Prescriptions: Aspirin 81 mg PO DAILY #30 tab.chew Home Medications: Rosuvastatin Calcium [Crestor] 5 mg PO DAILY 05/30/17 [History] hydroCHLOROthiazide [Hydrochlorothiazide] 25 mg PO DAILY #30 tablet 05/31/17 [Rx ] Aspirin 81 mg PO DAILY #30 tab.chew 06/06/17 [Rx] Lisinopril/Hydrochlorothiazide [Zestoretic 20-25 mg Tablet] 1 tab PO DAILY 06/06 [History] Allergies/Adverse Reactions: 3 Allergy/AdvReac Type Severity Reaction Status Date / Time No Known Allergies Allergy Verified 05/30/17 00:22 Procedures/tests Complete & Pending: Procedures Performed prior 72 hours Category Date Time Status NM crystal perf SPECT multi [NM] Routine Exams 06/06/17 03:27 Taken ECG 12 lead ECG [ECG] AM 0600 Y 06/06/17 06:00 Completed ECG 12 lead ECG [ECG] Routine Y 06/05/17 22:42 Completed SP pharm nuclear stress Stat Y 06/06/17 03:26 Completed Date of admission: 06/06/17 02:18 Primary care physician: Wiliam Britt Discharging clinician: Laura Jeffrey Anticipated date of discharge: 06/06/17 - Patient Status Disposition: Home, Self-Care Condition: Good Functional capacity at discharge: uses cane/walker Overall status at discharge: patient is back to baseline - Discharge Instructions Instructions: Hypokalemia (DC), Chest Pain (DC), Anxiety (DC), Atrial Fibrillation (DC) Follow Up With: Wiliam Britt, DO [Primary Care Provider] - 06/12/17 2:30 pm - Diet and Activity Activity: increase activity as tolerated Diet: advance to your usual diet Interval History: Seen and examined at bedside. Patient is due to me, information obtained from chart review and patient report. Patient says she feels back to her normal self elected go home today. She thinks chest pain was related to anxiety. No previous history of A. fib, not on anticoagulation or ASA. She has no complaints all my exam except for wanting to go home. Denies chest pain, no shortness of breath, no palpitations. Hospital course: See assessment and plan for hospital course - Time Spent with Patient Total time spent providing and/or coordinating discharge services: - Constitutional Vitals: Temp Pulse Resp BP Pulse Ox 97.7 F 74 15 126/74 97 06/06/17 11:32 06/06/17 11:32 06/06/17 11:32 06/06/17 11:32 06/06/17 11:32 General appearance: Present: A&O X 3, no acute distress. Absent: answers questions appropriately - Head Head exam: Present: atraumatic, normocephalic - Eye Eye exam: Present: PERRL, conjuntiva pink, sclera anicteric Pupils: Present: PERRL - Neck Neck exam general surgery: Present: supple, trachea midline. Absent: lymphadenopathy - Respiratory Respiratory exam: Present: CTAB. Absent: accessory muscle use, rales, rhonchi, wheezes - Cardiovascular Cardiovascular exam: Present: RRR, +S1, +S2. Absent: diastolic murmur, gallop, rubs, systolic murmur - GI/Abdominal GI/Abdominal exam: Present: normal bowel sounds, soft, no peritoneal signs. Absent: distended, tenderness - Extremities Exam Extremities exam: Present: warm, radial pulses palpable and symmetrical. Absent : calf tenderness, cyanotic, pedal edema - Neurological Exam Neurological exam: Present: CN II-XII intact, oriented X3, no focal deficits. Absent: pronater drift, facial droop, speech deficit - Skin Skin exam: Present: dry, intact
[2017-06-06 16:11] LABS: Magnesium 1.6 mg/dL (1.6-2.6); Potassium 3.7 mEq/L (3.5-4.5)
[2017-06-06] MEDS ORDERED: Aspirin 81 MG TAB.CHEW ONE (20:02)
[2017-06-06] MEDS: Aspirin 81 MG TAB.CHEW PO SCH (20:03)
--- NOTE | 2017-06-06 20:12 | Electrocardiograph Report ---
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
--- NOTE | 2017-06-06 20:15 | Electrocardiograph Report ---
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
--- NOTE | 2017-06-06 20:16 | Electrocardiograph Report ---
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
[2017-06-07] MEDS: *HR* Heparin 5,000 UNIT/ML VIAL SQ SCH (04:41)
[2017-06-07 05:47] LABS: BUN/Creatinine Ratio 25 (6-26); Blood Urea Nitrogen 25 mg/dL (7-20); Calcium 9.7 mg/dL (8.6-10.8); Carbon Dioxide 26 mEq/L (19-29); Chloride 104 mEq/L (98-109); Glucose 99 mg/dL (70-99); Osmolality,Calculated 292 (280-300); Sodium 139 mEq/L (136-145); eGFR For African Americans > 60 (> 60); eGFR For Non-African Americans 54 (> 60)
[2017-06-07 07:41] VITALS: BP 114/63
[2017-06-07] MEDS: Aspirin 81 MG TAB.CHEW PO SCH (08:44)
[2017-06-07] MEDS: hydroCHLOROthiazide 25 MG TABLET PO SCH (08:44)
--- NOTE | 2017-06-07 11:24 | Discharge Summary ---
Date of Encounter: 06/07/17 Time of Encounter: 11:21 - Discharge Diagnosis (1) Chest pain Priority: Primary Status: Resolved Comments: That started day of presentation. Patient suspects secondary to anxiety. 05/30 TTE with EF 60% and mild diastolic dysfunction. CXR negative. Serial troponins negative, EKG without acute ST changes. Stress test negative for infarct or ischemia. Recommend outpatient follow-up with cardiology. Continue home ASA, and statin. Qualifiers: Chest pain type: unspecified Qualified Code(s): R07.9 - Chest pain, unspecified (2) Atrial fibrillation Priority: Primary Status: Acute Comments: brief episodes of atrial fibrillation noted during stress. No A. fib noted on telemetry or EKG. No previous history of A. fib. Electrolytes optimized to keep Mg greater than 2 and K greater than 4. Continue home ASA. Follow-up with cardiology outpatient. Qualifiers: Atrial fibrillation type: paroxysmal Qualified Code(s): I48.0 - Paroxysmal atrial fibrillation (3) Hypokalemia Priority: Primary Status: Resolved Comments: K3.2 on arrival, Mg 1.3. Both normalized with replacement. Recommend repeat CMP with PCP within one week. (4) Anxiety Priority: Primary Status: Chronic Comments: per hx. patient reports being on Buspar in the past but self discontinued as she did not tolerate. Suspect anxiety contributing to chest pain. Strongly encourage outpatient follow-up with PCP - Discharge Medications Prescriptions: Aspirin 81 mg PO DAILY #30 tab.chew Home Medications: Rosuvastatin Calcium [Crestor] 5 mg PO DAILY 05/30/17 [History] Aspirin 81 mg PO DAILY #30 tab.chew 06/06/17 [Rx] Lisinopril/Hydrochlorothiazide [Zestoretic 20-25 mg Tablet] 1 tab PO DAILY 06/06 [History] Allergies/Adverse Reactions: 3 Allergy/AdvReac Type Severity Reaction Status Date / Time No Known Allergies Allergy Verified 05/30/17 00:22 Procedures/tests Complete & Pending: Procedures Performed prior 72 hours Category Date Time Status NM crystal perf SPECT multi [NM] Routine Exams 06/06/17 03:27 Taken ECG 12 lead ECG [ECG] AM 0600 Y 06/06/17 06:00 Completed ECG 12 lead ECG [ECG] Routine Y 06/05/17 22:42 Completed SP pharm nuclear stress Stat Y 06/06/17 03:26 Completed Date of admission: 06/06/17 02:18 Primary care physician: Wiliam Britt Discharging clinician: Laura Jeffrey Anticipated date of discharge: 06/07/17 - Patient Status Disposition: Home, Self-Care Condition: Good Overall status at discharge: patient is back to baseline - Discharge Instructions Instructions: Atrial Fibrillation (DC), Chest Pain (DC), Hypokalemia (DC), Anxiety (DC) Follow Up With: Wiliam Britt DO [Primary Care Provider] - 06/12/17 2:30 pm Rachell Larkin DO [Partnered Physician] - (Patient needs follow-up for brief A. fib noted during stress test) Additional Instructions: Please call your primary care doctor within 24 hours or the next business day to schedule follow-up appointment. You should be contacted by [facility] [facility] for follow-up appointment. If you do not hear from them within 2 weeks please call them at [phone] - Diet and Activity Activity: increase activity as tolerated Diet: advance to your usual diet Interval History: Seen and examined at bedside. Patient says she feels better and wants to go home today. No further CP, no SOB. Patient says again today that she suspects anxiety was cause of chest pain Hospital course: See assessment and plan for hospital course - Time Spent with Patient Total time spent providing and/or coordinating discharge services: - Constitutional Vitals: Temp Pulse Resp BP Pulse Ox 97.9 F 60 16 114/63 96 06/07/17 07:37 06/07/17 07:37 06/07/17 07:37 06/07/17 07:37 06/07/17 07:37 General appearance: Present: A&O X 3, no acute distress. Absent: answers questions appropriately - Head Head exam: Present: atraumatic, normocephalic - Eye Eye exam: Present: PERRL, conjuntiva pink, sclera anicteric Pupils: Present: PERRL - Neck Neck exam general surgery: Present: supple, trachea midline. Absent: lymphadenopathy - Respiratory Respiratory exam: Present: CTAB. Absent: accessory muscle use, rales, rhonchi, wheezes - Cardiovascular Cardiovascular exam: Present: RRR, +S1, +S2. Absent: diastolic murmur, gallop, rubs, systolic murmur - GI/Abdominal GI/Abdominal exam: Present: normal bowel sounds, soft, no peritoneal signs. Absent: distended, tenderness - Extremities Exam Extremities exam: Present: warm, radial pulses palpable and symmetrical. Absent : calf tenderness, cyanotic, pedal edema - Neurological Exam Neurological exam: Present: CN II-XII intact, oriented X3, no focal deficits. Absent: pronater drift, facial droop, speech deficit - Skin Skin exam: Present: dry, intact
== END 2017-06-07 14:10 | disposition home or self-care (01) ==
LOC: 3BNU 22:32 → EMEROO 22:32 → 3BNU 06-06 02:36
PROVIDERS: ADMIT Internal Medicine; ATTEND Registered Nurse